=== PATIENT | male | born 1960 | race African-American/Black ===

== ENCOUNTER 2021-01-10 12:16 | Inpatient (IN) | payer OTHER ==
[~2021-01-10] VITALS: Ht 172.7 cm; Wt 98.9 kg
[~2021-01-10 12:16] MED LIST: ATEN50TA PO; SERT-422 PO; TAMS0.4C31 PO
[2021-01-10] MEDS ORDERED: ATORVASTATIN CALCIUM 40MG TABLET PO STA (12:55)
[2021-01-10 12:58] LABS: HEMATOCRIT. 48.2 % (42.0-52.0); HEMOGLOBIN. 16.4 g/dL (14.0-18.0); MEAN CORPUSCULAR HEMOGLOBIN 32.9 pg (28.0-32.0); MEAN CORPUSCULAR VOLUME 96.4 fL (80.0-94.0); MEAN PLATELET VOLUME 7.2 fl (7.4-10.4); PLATELET 290 x1000/uL (130-400); RED CELL DISTRIBUTION WIDTH 12.3 % (11.6-14.6)
[2021-01-10] MEDS ORDERED: CLOPIDOGREL 75MG TABLET PO ONE (13:00)
[2021-01-10] MEDS ORDERED: ASPIRIN 325MG TABLET PO ONE (13:00)
[2021-01-10 13:06] LABS: CHLORIDE 101 mEq/L (98-107)
[2021-01-10 13:10] LABS: PROTHROMBIN TIME 11.1 sec (9.6-11.0)
[2021-01-10 13:12] LABS: ETHANOL BLOOD < 10 mg/dL
[2021-01-10 13:13] LABS: LDL CHOLESTEROL 110 mg/dL (5-100)
[2021-01-10 13:59] LABS: PLATELET ESTIMATE NORMAL
[2021-01-10 14:07] LABS: CLARITY URINE CLEAR (CLEAR); COLOR URINE YELLOW (YELLOW); KETONES URINE NEGATIVE (NEGATIVE); LEUKOCYTE ESTERASE URINE NEGATIVE (NEGATIVE); NITRITE URINE NEGATIVE (NEGATIVE); OCCULT BLOOD URINE NEGATIVE (NEGATIVE); PROTEIN URINE TRACE (NEGATIVE); SPECIFIC GRAVITY URINE 1.049 (1.005-1.030); UROBILINOGEN URINE 0.2 E.U./dL (0.2-1.0)
[2021-01-10 14:20] LABS: *AMPHETAMINES SCREEN URINE NEGATIVE (NEGATIVE); *BARBITURATES SCREEN URINE NEGATIVE (NEGATIVE); *BENZODIAZEPINES SCREEN URINE NEGATIVE (NEGATIVE); *COCAINE SCREEN URINE NEGATIVE (NEGATIVE); CANNABINOID URINE SCREEN NEGATIVE (NEGATIVE); OPIATES URINE SCREEN NEGATIVE (NEGATIVE)
[2021-01-10 14:21] LABS: PHENCYCLIDINE URINE SCREEN NEGATIVE (NEGATIVE)
[2021-01-10 14:22] LABS: METHADONE URINE SCREEN NEGATIVE (NEGATIVE)
[2021-01-10] MEDS ORDERED: IOHEXOL-350 100 ML BOTTLE ONE (15:12)
[2021-01-10] MEDS ORDERED: ONDANSETRON HCL 4MG/2ML INJ IV PRN (15:30)
[2021-01-10] MEDS ORDERED: ACETAMINOPHEN 325MG TABLET PO PRN (15:30)
[2021-01-10] MEDS ORDERED: IPRATROPIUM/ALBUTEROL 0.5-3(2.5)MG/3ML NEB HHN PRN (15:30)
[2021-01-10] MEDS ORDERED: ENOXAPARIN 30MG/0.3ML SYR SUBCUT SCH (15:30)
[2021-01-10 17:00] VITALS: BP 167/97
[2021-01-10 17:05] VITALS: BP 167/97
[2021-01-10] MEDS ORDERED: AMLO5TAB88 PO (18:14)
[2021-01-10] MEDS ORDERED: GABA-529 MT (18:15)
[2021-01-10] MEDS ORDERED: LOSA100T32 PO (18:16)
[2021-01-10] MEDS ORDERED: HYDR25TA PO (18:27)
[2021-01-10] MEDS ORDERED: P20 PO (18:28)
[2021-01-10] MEDS ORDERED: TAMS-11 PO (18:29)
[2021-01-10] MEDS ORDERED: PIPERACILLIN/TAZOBACTAM 3.375 G in DEXT 5% WATER 100 ML IV SCH (18:30)
[2021-01-10] MEDS ORDERED: INFLUENZA VACCINE 05/PF 0.5 ML VIAL IM ONE (19:30)
[2021-01-10 20:00] VITALS: BP 152/100
[2021-01-10] MEDS: LOSARTAN POTASSIUM 100 MG TABLET PO SCH (21:33)
[2021-01-10] MEDS: HYDROCHLOROTHIAZIDE 25MG TABLET PO SCH (21:34)
[2021-01-10] MEDS: ATORVASTATIN CALCIUM 40MG TABLET PO SCH (21:34)
[2021-01-10] MEDS: AMLODIPINE 5MG TABLET PO SCH (21:35)
[2021-01-10] MEDS: GABAPENTIN 100MG CAPSULE PO SCH (21:35)
[2021-01-10] MEDS: PIPERACILLIN/TAZOBACTAM 3.375 G in DEXT 5% WATER 100 ML IV SCH (21:44)
[2021-01-10] MEDS: ASPIRIN 81MG EC TABLET PO SCH (21:45)
[2021-01-10] MEDS: ENOXAPARIN 30MG/0.3ML SYR SUBCUT SCH (21:45)
[2021-01-11] VITALS: BP 144/87
[2021-01-11] MEDS: DIPHENHYDRAMINE 50MG/ML VIAL IV PRN ×2 (01:40→21:48)
[2021-01-11 04:00] VITALS: BP 155/89
[2021-01-11] MEDS: GABAPENTIN 100MG CAPSULE PO SCH ×3 (06:27→21:48)
[2021-01-11] MEDS: CLONIDINE 0.1MG TABLET PO PRN (06:27)
[2021-01-11] MEDS: PIPERACILLIN/TAZOBACTAM 3.375 G in DEXT 5% WATER 100 ML IV SCH ×4 (06:27→20:25)
[2021-01-11 08:00] VITALS: BP 139/94
[2021-01-11] MEDS: ASPIRIN 81MG EC TABLET PO SCH (09:50)
[2021-01-11] MEDS: HYDROCHLOROTHIAZIDE 25MG TABLET PO SCH (09:50)
[2021-01-11] MEDS: TAMSULOSIN HCL 0.4MG SR CAPSULE PO SCH (09:51)
[2021-01-11] MEDS: PREDNISONE 20MG TABLET PO SCH (09:51)
[2021-01-11] MEDS: AMLODIPINE 5MG TABLET PO SCH (09:52)
[2021-01-11] MEDS: LOSARTAN POTASSIUM 100 MG TABLET PO SCH (09:52)
[2021-01-11] MEDS: ENOXAPARIN 30MG/0.3ML SYR SUBCUT SCH ×2 (09:53→20:26)
[2021-01-11] MEDS ORDERED: HYDROCODONE/ACETAMINOPHEN 5/325MG TABLET PO PRN ×2 (11:30→12:30)
[2021-01-11 12:00] VITALS: BP 129/92
[2021-01-11] MEDS ORDERED: DEXTROSE 50% WATER 50ML SYRINGE IV PRN ×2 (12:45)
[2021-01-11] MEDS: INSULIN LISPRO 100 UNITS/ML SUBCUT SCH ×3 (13:16→20:27)
[2021-01-11 16:00] VITALS: BP 124/85
[2021-01-11] MEDS: BLOOD SUGAR DIAGNOSTIC STRIP TEST SCH ×2 (17:20→20:27)
[2021-01-11] MEDS: ATORVASTATIN CALCIUM 40MG TABLET PO SCH (20:25)
[2021-01-11 20:38] VITALS: BP 114/73
[2021-01-12] VITALS (7 sets, daily range): BP systolic 113–142; BP diastolic 68–94
[2021-01-12] MEDS: PIPERACILLIN/TAZOBACTAM 3.375 G in DEXT 5% WATER 100 ML IV SCH ×3 (01:40→14:02)
[2021-01-12] MEDS: CLONIDINE 0.1MG TABLET PO PRN (05:25)
[2021-01-12] MEDS: GABAPENTIN 100MG CAPSULE PO SCH ×3 (05:25→21:00)
[2021-01-12 06:35] LABS: CHLORIDE 98 mEq/L (98-107)
[2021-01-12 06:42] LABS: BASOPHILS % 0.4 % (0.0-2.0); HEMOGLOBIN. 16.2 g/dL (14.0-18.0); LYMPHOCYTES % 16.8 % (20.0-50.0); MEAN CORPUSCULAR HEMOGLOBIN 32.9 pg (28.0-32.0); MEAN CORPUSCULAR VOLUME 95.5 fL (80.0-94.0); MEAN PLATELET VOLUME 7.4 fl (7.4-10.4); MONOCYTES % 9.8 % (2.0-8.0); PLATELET 287 x1000/uL (130-400); RED BLOOD CELL COUNT 4.92 mill/uL (4.7-6.1); RED CELL DISTRIBUTION WIDTH 12.2 % (11.6-14.6)
[2021-01-12] MEDS: BLOOD SUGAR DIAGNOSTIC STRIP TEST SCH ×4 (06:50→20:59)
[2021-01-12] MEDS: INSULIN LISPRO 100 UNITS/ML SUBCUT SCH ×4 (06:50→20:59)
[2021-01-12] MEDS: ASPIRIN 81MG EC TABLET PO SCH (08:53)
[2021-01-12] MEDS: HYDROCHLOROTHIAZIDE 25MG TABLET PO SCH (08:53)
[2021-01-12] MEDS: LOSARTAN POTASSIUM 100 MG TABLET PO SCH (08:53)
[2021-01-12] MEDS: PREDNISONE 20MG TABLET PO SCH (08:53)
[2021-01-12] MEDS: TAMSULOSIN HCL 0.4MG SR CAPSULE PO SCH (08:54)
[2021-01-12] MEDS: AMLODIPINE 5MG TABLET PO SCH (08:54)
[2021-01-12] MEDS: ENOXAPARIN 30MG/0.3ML SYR SUBCUT SCH ×2 (08:55→20:59)
[2021-01-12] MEDS ORDERED: POTASSIUM CHLORIDE 20MEQ TABLET SR PO SCH (12:00)
[2021-01-12] MEDS: ATORVASTATIN CALCIUM 20MG TABLET PO SCH (20:59)
[2021-01-12] MEDS: TRAZODONE HCL 50MG TABLET PO SCH (20:59)
[2021-01-13] VITALS (9 sets, daily range): BP systolic 124–160; BP diastolic 70–103
[2021-01-13] MEDS: GABAPENTIN 100MG CAPSULE PO SCH ×3 (06:03→21:08)
[2021-01-13] MEDS: BLOOD SUGAR DIAGNOSTIC STRIP TEST SCH ×4 (06:39→20:38)
[2021-01-13] MEDS: INSULIN LISPRO 100 UNITS/ML SUBCUT SCH ×4 (07:50→21:09)
[2021-01-13] MEDS: AMLODIPINE 5MG TABLET PO SCH (08:25)
[2021-01-13] MEDS: LOSARTAN POTASSIUM 100 MG TABLET PO SCH (08:25)
[2021-01-13] MEDS: ASPIRIN 81MG EC TABLET PO SCH (08:25)
[2021-01-13] MEDS: TAMSULOSIN HCL 0.4MG SR CAPSULE PO SCH (08:26)
[2021-01-13] MEDS: PREDNISONE 20MG TABLET PO SCH (08:26)
[2021-01-13] MEDS: HYDROCHLOROTHIAZIDE 25MG TABLET PO SCH (08:26)
[2021-01-13] MEDS: ENOXAPARIN 30MG/0.3ML SYR SUBCUT SCH ×2 (08:26→21:08)
[2021-01-13] MEDS ORDERED: AMLODIPINE 5MG TABLET PO SCH (13:00)
[2021-01-13] MEDS: DEXAMETHASONE 4MG/ML 1ML VIAL IV SCH ×2 (17:33→23:37)
[2021-01-13] MEDS: ATORVASTATIN CALCIUM 20MG TABLET PO SCH (21:08)
[2021-01-13] MEDS: TRAZODONE HCL 50MG TABLET PO SCH (21:08)
[2021-01-14] VITALS: BP 121/73
[2021-01-14 04:00] VITALS: BP 157/108
[2021-01-14] MEDS: GABAPENTIN 100MG CAPSULE PO SCH ×3 (05:36→21:04)
[2021-01-14] MEDS: DEXAMETHASONE 4MG/ML 1ML VIAL IV SCH ×4 (05:36→23:05)
[2021-01-14] MEDS: BLOOD SUGAR DIAGNOSTIC STRIP TEST SCH ×4 (06:24→20:43)
[2021-01-14 08:00] VITALS: BP 157/104
[2021-01-14] MEDS: LOSARTAN POTASSIUM 100 MG TABLET PO SCH (08:38)
[2021-01-14] MEDS: AMLODIPINE 10MG TABLET PO SCH (08:39)
[2021-01-14] MEDS: HYDROCHLOROTHIAZIDE 25MG TABLET PO SCH (08:39)
[2021-01-14] MEDS: TAMSULOSIN HCL 0.4MG SR CAPSULE PO SCH (08:39)
[2021-01-14] MEDS: ASPIRIN 81MG EC TABLET PO SCH (08:39)
[2021-01-14] MEDS: INSULIN LISPRO 100 UNITS/ML SUBCUT SCH ×4 (08:40→21:04)
[2021-01-14] MEDS: ENOXAPARIN 30MG/0.3ML SYR SUBCUT SCH ×2 (08:40→20:42)
[2021-01-14 12:00] VITALS: BP 154/98
[2021-01-14 16:00] VITALS: BP 128/76
[2021-01-14 20:00] VITALS: BP 131/91
[2021-01-14] MEDS: TRAZODONE HCL 50MG TABLET PO SCH (20:42)
[2021-01-14] MEDS ORDERED: ATORVASTATIN CALCIUM 10MG TABLET PO SCH (21:00)
[2021-01-14] MEDS: DIPHENHYDRAMINE 50MG/ML VIAL IV PRN (21:10)
[2021-01-15] VITALS: BP 125/85
[2021-01-15 04:00] VITALS: BP 147/99
[2021-01-15] MEDS: GABAPENTIN 100MG CAPSULE PO SCH (06:04)
[2021-01-15] MEDS: DEXAMETHASONE 4MG/ML 1ML VIAL IV SCH ×2 (06:04→11:20)
[2021-01-15] MEDS: BLOOD SUGAR DIAGNOSTIC STRIP TEST SCH ×2 (07:33→12:20)
[2021-01-15 08:00] VITALS: BP 122/85
[2021-01-15] MEDS: TAMSULOSIN HCL 0.4MG SR CAPSULE PO SCH (08:06)
[2021-01-15] MEDS: LOSARTAN POTASSIUM 100 MG TABLET PO SCH (08:06)
[2021-01-15] MEDS: HYDROCHLOROTHIAZIDE 25MG TABLET PO SCH (08:07)
[2021-01-15] MEDS: ENOXAPARIN 30MG/0.3ML SYR SUBCUT SCH (08:07)
[2021-01-15] MEDS: AMLODIPINE 10MG TABLET PO SCH (08:07)
[2021-01-15] MEDS: ASPIRIN 81MG EC TABLET PO SCH (08:07)
[2021-01-15] MEDS: INSULIN LISPRO 100 UNITS/ML SUBCUT SCH (08:08)
[2021-01-15 10:58] VITALS: BP 125/79
[2021-01-15 12:00] VITALS: BP 125/77
[2021-01-15] MEDS ORDERED: ASPI-1406 PO (12:17)
[2021-01-15] MEDS ORDERED: ATOR10TA PO (12:17)
[2021-01-15] MEDS ORDERED: AMLO10TA80 PO (12:17)
[2021-01-15] MEDS ORDERED: PANT40TA51 MT (12:50)
== END 2021-01-15 12:45 | disposition home or self-care (01) | DRG 58 ==
LOC: ER 12:19 → 6WST 14:19 → EDBEDREQ 14:23 → EDBEDREQSVC 14:23 → ENRESERV 15:50 → ER 16:51
PROVIDERS: ADMIT Internal Medicine; ATTEND Internal Medicine
PROC: 4A00X4Z Measurement of Central Nervous Electrical Activity, External Approach (ICD-10-PCS; principal; 2021-01-10)
DX: G81.94 Hemiplegia, unspecified affecting left nondominant side (principal); M50.223 Other cervical disc displacement at C6-C7 level; I16.0 Hypertensive urgency; M48.02 Spinal stenosis, cervical region; G51.0 Bell's palsy; F17.210 Nicotine dependence, cigarettes, uncomplicated; D72.825 Bandemia; I10 Essential (primary) hypertension; R31.9 Hematuria, unspecified; E78.5 Hyperlipidemia, unspecified; M48.07 Spinal stenosis, lumbosacral region; Z82.49 Family history of ischemic heart disease and other diseases of the circulatory system; Z79.899 Other long term (current) drug therapy; Z86.73 Personal history of transient ischemic attack (TIA), and cerebral infarction without residual deficits
CPT/HCPCS: 36415; 70496; 70498; 70551; 71045; 72141; 72146; 72148; 80048; 80053; 80061; 80305; 80320; 81003; 82962; 83036; 83721; 83880; 84145; 84484; 85025; 90686; 92610; 93005; 93970; 95816; 97116; 97162; 97166; 97530; 97535; 99291; J1100; J1200; J1650; J1815; J2543; J7060; J7512; Q9967; G0480

== ENCOUNTER 2022-07-10 20:43 | Inpatient (IN) | payer MEDICAID, OTHER ==
[~2022-07-10] VITALS: Ht 170.2 cm; Wt 95.3 kg
[~2022-07-10 20:43] MED LIST changes: +AMLO10TA80 PO; +ASPI-1406 PO; -ATEN50TA PO; +ATOR10TA PO; +GABA-529 MT; +HYDR25TA PO; +LOSA100T32 PO; +P20 PO; +PANT40TA51 MT
[2022-07-10 22:07] LABS: BASOPHILS % 1.3 % (0.0-2.0); HEMATOCRIT. 44.8 % (42.0-52.0); HEMOGLOBIN. 15.6 g/dL (14.0-18.0); LYMPHOCYTES % 27.7 % (20.0-50.0); MEAN CORPUSCULAR HEMOGLOBIN 32.5 pg (28.0-32.0); MEAN CORPUSCULAR VOLUME 93.2 fL (80.0-94.0); MEAN PLATELET VOLUME 8.1 fl (7.4-10.4); PLATELET 175 x1000/uL (130-400); RED BLOOD CELL COUNT 4.81 mill/uL (4.7-6.1); RED CELL DISTRIBUTION WIDTH 13.4 % (11.6-14.6)
[2022-07-10 22:14] LABS: CHLORIDE 101 mEq/L (98-107)
[2022-07-10 22:15] LABS: INR 1.1; PROTHROMBIN TIME 11.5 sec (9.6-11.0)
[2022-07-10] MEDS ORDERED: POTASSIUM CHLORIDE 20MEQ TABLET SR PO NR (22:45)
[2022-07-11] MEDS ORDERED: ASPIRIN 325MG EC TABLET PO ONE (00:15)
[2022-07-11] MEDS ORDERED: IOHEXOL-350 100 ML BOTTLE ONE (05:50)
[2022-07-11 09:43] VITALS: BP 130/88
[2022-07-11] MEDS ORDERED: ONDANSETRON HCL 4MG/2ML INJ IV PRN (11:00)
[2022-07-11 11:18] VITALS: BP 136/78
[2022-07-11 12:00] VITALS: BP 143/83
[2022-07-11 12:09] VITALS: BP 137/76
[2022-07-11] MEDS: ENOXAPARIN 30MG/0.3ML SYR SUBCUT SCH ×2 (13:42→20:33)
[2022-07-11 16:00] VITALS: BP 136/77
[2022-07-11 20:00] VITALS: BP 137/92
[2022-07-11] MEDS ORDERED: DIPHENHYDRAMINE 25MG CAPSULE PO NR (20:45)
[2022-07-11] MEDS ORDERED: ATORVASTATIN CALCIUM 40MG TABLET PO SCH ×2 (21:00)
[2022-07-11] MEDS ORDERED: HEPARIN 5000 UNITS/ML VIAL SUBCUT SCH (21:00)
[2022-07-12] VITALS: BP 124/84
[2022-07-12 04:00] VITALS: BP 130/83
[2022-07-12] MEDS ORDERED: BUSPIRONE HCL 5MG TABLET PO SCH (09:00)
[2022-07-12] MEDS ORDERED: ASPIRIN 81MG TABLET PO SCH (09:00)
[2022-07-12] MEDS: ENOXAPARIN 30MG/0.3ML SYR SUBCUT SCH (09:02)
[2022-07-12 10:57] VITALS: BP 139/87
== END 2022-07-12 11:40 | disposition home or self-care (01) | DRG 347 ==
LOC: ER 20:43 → 8WST 07-11 04:53 → EDBEDREQ 07-11 05:11 → EDBEDREQTM 07-11 05:11
PROVIDERS: ADMIT Internal Medicine Pulmonary Disease; ATTEND Internal Medicine Pulmonary Disease
DX: M48.02 Spinal stenosis, cervical region (principal); E87.1 Hypo-osmolality and hyponatremia; M50.31 Other cervical disc degeneration, high cervical region; M47.812 Spondylosis without myelopathy or radiculopathy, cervical region; M48.07 Spinal stenosis, lumbosacral region; Z20.822 Contact with and (suspected) exposure to COVID-19; E11.9 Type 2 diabetes mellitus without complications; I10 Essential (primary) hypertension; F41.9 Anxiety disorder, unspecified; G89.29 Other chronic pain; F12.90 Cannabis use, unspecified, uncomplicated; E66.9 Obesity, unspecified; E87.6 Hypokalemia; Z86.73 Personal history of transient ischemic attack (TIA), and cerebral infarction without residual deficits; Z82.49 Family history of ischemic heart disease and other diseases of the circulatory system; Z68.32 Body mass index [BMI] 32.0-32.9, adult
CPT/HCPCS: 36415; 70496; 70498; 70551; 71045; 72141; 80053; 83880; 84484; 85025; 87426; 93005; 93306; 93970; 97162; 99291; C9803; J1650; Q0163; Q9967

== ENCOUNTER 2023-11-11 12:47 | Inpatient (IN) | payer MEDICAID, OTHER ==
[~2023-11-11] VITALS: Ht 172.7 cm; Wt 95.7 kg
[~2023-11-11 12:47] MED LIST changes: -LOSA100T32 PO; +LOSA100T33 PO
[2023-11-11 15:08] LABS: INR 1.1; PROTHROMBIN TIME 11.4 sec (9.6-11.0)
[2023-11-11 15:17] LABS: ALANINE AMINOTRANSFERASE 14 IU/L (10-49); ASPARTATE AMINOTRANSFERASE 16 IU/L (<34); BASOPHILS % 0.4 % (0.0-2.0); BILIRUBIN TOTAL 0.7 mg/dL (0.1-1.0); CALCIUM 8.6 mg/dL (8.7-10.4); CARBON DIOXIDE 24 mEq/L (21-32); CHLORIDE 106 mEq/L (98-107); CREATININE 1.4 mg/dL (0.6-1.3); EOSINOPHILS % 0.5 % (0.0-5.0); GLUCOSE 133 mg/dL (70-105); HEMATOCRIT. 50.5 % (42.0-52.0); HEMOGLOBIN. 17.4 g/dL (14.0-18.0); LYMPHOCYTES % 10.4 % (20.0-50.0); MEAN CORPUSCULAR HEMOGLOBIN 32.7 pg (28.0-32.0); MEAN CORPUSCULAR HGB CONC 34.4 g/dL (31.0-37.0); MEAN CORPUSCULAR VOLUME 95.1 fL (80.0-94.0); MONOCYTES % 10.1 % (2.0-8.0); NEUTROPHILS % 78.6 % (40.0-76.0); PLATELET 202 x1000/uL (130-400); PROTEIN TOTAL 7.6 g/dL (6.0-8.3); RED BLOOD CELL COUNT 5.31 mill/uL (4.7-6.1); RED CELL DISTRIBUTION WIDTH 12.9 % (11.6-14.6); SODIUM 138 mEq/L (136-145); TROPONIN I HIGH SENSITIVITY 8 ng/L (3.0-53); UREA NITROGEN BLOOD 14 mg/dL (9-23); WHITE BLOOD COUNT 7.5 x1000/uL (4.5-11.0)
[2023-11-11 15:19] LABS: ETHANOL BLOOD < 10 mg/dL (<10)
[2023-11-11 15:22] LABS: DIFFERENTIAL COMMENT 1
[2023-11-11 17:46] LABS: TROPONIN I HIGH SENSITIVITY 10 ng/L (3.0-53)
[2023-11-11 21:33] LABS: TROPONIN I HIGH SENSITIVITY 9 ng/L (3.0-53)
[2023-11-11 22:15] VITALS: BP 156/100; PULSE 87; RESP 19; TEMP 97.8
[2023-11-11] MEDS ORDERED: MAGNESIUM/ALUMINUM HYDROXIDE/SIMETHICONE 30ML UDC PO PRN (23:30)
[2023-11-11] MEDS ORDERED: ONDANSETRON HCL 4MG/2ML INJ IV PRN (23:30)
[2023-11-11] MEDS ORDERED: DOCUSATE SODIUM 100MG CAPSULE PO PRN (23:30)
[2023-11-11] MEDS ORDERED: ACETAMINOPHEN 325MG TABLET PO PRN (23:30)
[2023-11-11] MEDS ORDERED: CLONIDINE 0.1MG TABLET PO PRN (23:30)
[2023-11-12] MEDS: GABAPENTIN 100MG CAPSULE PO SCH ×2 (00:45→09:04)
[2023-11-12 04:00] VITALS: BP_SYST 123; BP_SYST 125; BP_SYST 129; BP_DIAS 77; BP_DIAS 82; PULSE 101; TEMP 97.9
[2023-11-12 08:00] VITALS: BP 147/95; PULSE 89; RESP 16; TEMP 97.9
[2023-11-12] MEDS ORDERED: PANTOPRAZOLE 40MG DR TABLET PO SCH (09:00)
[2023-11-12] MEDS: AMLODIPINE 10MG TABLET PO SCH (09:04)
[2023-11-12] MEDS: LOSARTAN 100 MG TABLET PO SCH (09:04)
[2023-11-12] MEDS: ASPIRIN 81MG EC TABLET PO SCH (09:04)
[2023-11-12] MEDS: ENOXAPARIN 30MG/0.3ML SYR SUBCUT SCH ×2 (09:05→21:37)
[2023-11-12 12:00] VITALS: BP 145/85; PULSE 88; RESP 16; TEMP 97.9
[2023-11-12] MEDS: CLONIDINE 0.1MG TABLET PO SCH ×2 (14:00→22:00)
[2023-11-12] MEDS ORDERED: REGADENOSON 0.4 MG/5 ML IV NR (14:15)
[2023-11-12 16:00] VITALS: BP 134/88; PULSE 87; RESP 18; TEMP 98
[2023-11-12] MEDS: HYDRALAZINE HCL 50MG TABLET PO SCH ×2 (16:00→22:00)
[2023-11-12 17:14] LABS: BASOPHILS % 0.7 % (0.0-2.0); EOSINOPHILS % 3.3 % (0.0-5.0); HEMATOCRIT. 46.9 % (42.0-52.0); HEMOGLOBIN. 15.9 g/dL (14.0-18.0); MEAN CORPUSCULAR HEMOGLOBIN 32.9 pg (28.0-32.0); MEAN CORPUSCULAR HGB CONC 33.8 g/dL (31.0-37.0); MEAN CORPUSCULAR VOLUME 97.1 fL (80.0-94.0); MEAN PLATELET VOLUME 8.2 fl (7.4-10.4); MONOCYTES % 10.9 % (2.0-8.0); NEUTROPHILS % 63.1 % (40.0-76.0); PLATELET 188 x1000/uL (130-400); RED BLOOD CELL COUNT 4.84 mill/uL (4.7-6.1); RED CELL DISTRIBUTION WIDTH 12.8 % (11.6-14.6); WHITE BLOOD COUNT 5.5 x1000/uL (4.5-11.0)
[2023-11-12] MEDS: GABAPENTIN 300MG CAPSULE PO SCH (17:33)
[2023-11-12 17:48] LABS: TROPONIN I HIGH SENSITIVITY 5 ng/L (3.0-53)
[2023-11-12 17:53] LABS: CALCIUM 8.4 mg/dL (8.7-10.4); CARBON DIOXIDE 25 mEq/L (21-32); CHLORIDE 104 mEq/L (98-107); CHOLESTEROL 180 mg/dL (<200); CREATININE 1.3 mg/dL (0.6-1.3); GLUCOSE 128 mg/dL (70-105); HDL CHOLESTEROL 28 mg/dL (>55); LDL CHOLESTEROL 118 mg/dL (5-100); POTASSIUM 4.2 mEq/L (3.5-5.1); SODIUM 137 mEq/L (136-145); THYROID STIMULATING HORMONE 0.66 uIU/mL (0.55-4.78); TRIGLYCERIDE 130 mg/dL (0-150); UREA NITROGEN BLOOD 14 mg/dL (9-23)
[2023-11-12 18:27] LABS: HEPATITIS B SURFACE ANTIGEN NEGATIVE (Negative); HEPATITIS C AB NON REACTIVE (Neg) (Negative)
[2023-11-12 20:00] VITALS: BP 102/54; PULSE 87; RESP 18; TEMP 97.7
[2023-11-12] MEDS ORDERED: ATORVASTATIN CALCIUM 10MG TABLET PO SCH (21:00)
[2023-11-12] MEDS: TAMSULOSIN HCL 0.4MG SR CAPSULE PO SCH (21:36)
[2023-11-13] VITALS (7 sets, daily range): BP systolic 106–134; BP diastolic 61–78; PULSE 85–91; RESP 17–20; TEMP 97.4–98.6
[2023-11-13 01:04] LABS: TROPONIN I HIGH SENSITIVITY 5 ng/L (3.0-53)
[2023-11-13] MEDS: PANTOPRAZOLE 40MG DR TABLET PO SCH (05:54)
[2023-11-13] MEDS: HYDRALAZINE HCL 50MG TABLET PO SCH ×2 (05:54→13:31)
[2023-11-13] MEDS: CLONIDINE 0.1MG TABLET PO SCH ×3 (05:54→21:45)
[2023-11-13 07:54] LABS: EOSINOPHILS % 4.1 % (0.0-5.0); HEMATOCRIT. 45.5 % (42.0-52.0); HEMOGLOBIN. 15.3 g/dL (14.0-18.0); LYMPHOCYTES % 19.4 % (20.0-50.0); MEAN CORPUSCULAR HEMOGLOBIN 32.7 pg (28.0-32.0); MEAN CORPUSCULAR HGB CONC 33.7 g/dL (31.0-37.0); MEAN CORPUSCULAR VOLUME 96.9 fL (80.0-94.0); MEAN PLATELET VOLUME 8.3 fl (7.4-10.4); MONOCYTES % 7.9 % (2.0-8.0); NEUTROPHILS % 67.6 % (40.0-76.0); PLATELET 182 x1000/uL (130-400); RED BLOOD CELL COUNT 4.69 mill/uL (4.7-6.1); RED CELL DISTRIBUTION WIDTH 12.7 % (11.6-14.6); WHITE BLOOD COUNT 5.1 x1000/uL (4.5-11.0)
[2023-11-13 08:12] LABS: CALCIUM 8.1 mg/dL (8.7-10.4); CARBON DIOXIDE 20 mEq/L (21-32); CHLORIDE 107 mEq/L (98-107); CHOLESTEROL 168 mg/dL (<200); CREATININE 1.3 mg/dL (0.6-1.3); GLUCOSE 125 mg/dL (70-105); HDL CHOLESTEROL 26 mg/dL (>55); LDL CHOLESTEROL 108 mg/dL (5-100); POTASSIUM 4.1 mEq/L (3.5-5.1); SODIUM 136 mEq/L (136-145); TRIGLYCERIDE 151 mg/dL (0-150); TROPONIN I HIGH SENSITIVITY 4 ng/L (3.0-53); UREA NITROGEN BLOOD 17 mg/dL (9-23)
[2023-11-13] MEDS: GABAPENTIN 300MG CAPSULE PO SCH ×3 (09:03→17:34)
[2023-11-13] MEDS: AMLODIPINE 10MG TABLET PO SCH (09:05)
[2023-11-13] MEDS: ENOXAPARIN 30MG/0.3ML SYR SUBCUT SCH ×2 (09:05→21:44)
[2023-11-13] MEDS: ASPIRIN 81MG EC TABLET PO SCH (09:06)
[2023-11-13] MEDS: LOSARTAN 100 MG TABLET PO SCH (09:08)
[2023-11-13] MEDS ORDERED: REGADENOSON 0.4 MG/5 ML IV ONE (11:03)
[2023-11-13] MEDS: MAGNESIUM OXIDE 400MG TABLET PO SCH (13:34)
[2023-11-13] MEDS ORDERED: ATORVASTATIN CALCIUM 20MG TABLET PO SCH (21:00)
[2023-11-13] MEDS: TAMSULOSIN HCL 0.4MG SR CAPSULE PO SCH (21:45)
[2023-11-14] VITALS: BP 113/68; PULSE 75; RESP 17; TEMP 97.3
[2023-11-14 04:00] VITALS: BP 139/91; PULSE 91; RESP 18; TEMP 97.3
[2023-11-14] MEDS: CLONIDINE 0.1MG TABLET PO SCH ×2 (06:25→14:26)
[2023-11-14] MEDS: PANTOPRAZOLE 40MG DR TABLET PO SCH (06:25)
[2023-11-14 06:48] LABS: BASOPHILS % 0.7 % (0.0-2.0); HEMATOCRIT. 44.1 % (42.0-52.0); HEMOGLOBIN. 15.2 g/dL (14.0-18.0); LYMPHOCYTES % 25.5 % (20.0-50.0); MEAN CORPUSCULAR HEMOGLOBIN 32.8 pg (28.0-32.0); MEAN CORPUSCULAR HGB CONC 34.5 g/dL (31.0-37.0); MEAN CORPUSCULAR VOLUME 95.2 fL (80.0-94.0); MONOCYTES % 9.7 % (2.0-8.0); NEUTROPHILS % 59.1 % (40.0-76.0); PLATELET 181 x1000/uL (130-400); RED BLOOD CELL COUNT 4.64 mill/uL (4.7-6.1); RED CELL DISTRIBUTION WIDTH 12.7 % (11.6-14.6)
[2023-11-14 07:20] LABS: CALCIUM 8.2 mg/dL (8.7-10.4); CARBON DIOXIDE 26 mEq/L (21-32); CHLORIDE 104 mEq/L (98-107); CREATININE 1.1 mg/dL (0.6-1.3); GLUCOSE 114 mg/dL (70-105); POTASSIUM 4.5 mEq/L (3.5-5.1); SODIUM 136 mEq/L (136-145); UREA NITROGEN BLOOD 16 mg/dL (9-23)
[2023-11-14 08:00] VITALS: BP 118/64; PULSE 77; RESP 18; TEMP 98
[2023-11-14] MEDS: GABAPENTIN 300MG CAPSULE PO SCH ×2 (08:26→14:26)
[2023-11-14] MEDS: ASPIRIN 81MG EC TABLET PO SCH (08:26)
[2023-11-14] MEDS: AMLODIPINE 10MG TABLET PO SCH (08:27)
[2023-11-14] MEDS: ENOXAPARIN 30MG/0.3ML SYR SUBCUT SCH (08:28)
[2023-11-14] MEDS: MAGNESIUM OXIDE 400MG TABLET PO SCH (08:28)
[2023-11-14] MEDS: LOSARTAN 100 MG TABLET PO SCH (08:29)
[2023-11-14 12:00] VITALS: BP 111/73; PULSE 89; RESP 20; TEMP 97.5
[2023-11-14] MEDS ORDERED: LOSA50TA41 MT (13:03)
[2023-11-14 14:47] VITALS: BP 110/70; PULSE 89; TEMP 97.5; O2SAT 99
== END 2023-11-14 15:00 | disposition home health service (06) | DRG 48 ==
LOC: ER 12:47 → EDBEDREQTM 15:52 → EDBEDREQ 18:23 → 7EST 23:02
PROVIDERS: ADMIT Internal Medicine Pulmonary Disease; ATTEND Internal Medicine Pulmonary Disease
PROC: 4A10X4Z Monitoring of Central Nervous Electrical Activity, External Approach (ICD-10-PCS; principal; 2023-11-14)
DX: G90.8 Other disorders of autonomic nervous system (principal); N17.0 Acute kidney failure with tubular necrosis; I10 Essential (primary) hypertension; E11.9 Type 2 diabetes mellitus without complications; E66.9 Obesity, unspecified; R07.89 Other chest pain; E78.5 Hyperlipidemia, unspecified; M48.02 Spinal stenosis, cervical region; Z79.82 Long term (current) use of aspirin; G47.33 Obstructive sleep apnea (adult) (pediatric); Z68.32 Body mass index [BMI] 32.0-32.9, adult; Z79.899 Other long term (current) drug therapy; Z82.49 Family history of ischemic heart disease and other diseases of the circulatory system; Z86.73 Personal history of transient ischemic attack (TIA), and cerebral infarction without residual deficits
CPT/HCPCS: 36415; 70551; 71045; 72141; 73030; 78452; 80048; 80053; 80061; 80320; 83735; 84443; 84484; 85025; 85379; 86705; 87340; 93005; 93306; 93880; 95816; 97162; 97166; 99291; A9500; J1650; J2785; G0480